=== PATIENT | male | born 2000 | race African-American/Black ===

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

== ENCOUNTER 2020-12-16 11:13 | Emergency (ER) | payer MEDICAID ==
[~2020-12-16] VITALS: Ht 170.2 cm; Wt 56.4 kg
[2020-12-16 11:17] VITALS: BP 120/67; Ht 170.2 cm; Wt 56.4 kg
[2020-12-16 12:07] LABS: SARS-CoV-2 ANTIGEN NEGATIVE- SARS-COV-2 (NEGATIVE)
[2020-12-16] MEDS ORDERED: ALBUTEROL SULF8.5 GM INH (12:12)
== END 2020-12-16 13:09 | disposition home or self-care (01) ==
LOC: D.ER 11:13
PROVIDERS: Emergency Medicine
DX: Z20.822 Contact with and (suspected) exposure to COVID-19 (principal); M79.10 Myalgia, unspecified site; B34.9 Viral infection, unspecified; J98.9 Respiratory disorder, unspecified